=== PATIENT | female | born 1950 | race Caucasian/White ===

== ENCOUNTER → 2019-03-25 10:33 | Outpatient (CLI) | payer OTHER, SELFPAY ==
--- NOTE | ~2019-03-25 | XR_ITS ---
EXAMINATION: XR shoulder RT min 2V EXAM DATE: 03/25/2019 10:57 INDICATION: No known recent injury provided at this time. Pain of the right shoulder. TECHNIQUE: The following right shoulder projections obtained: frontal projection with internal rotati on, frontal projection with external rotation, Grashey, and axillary (4+ views). There is no prior s tudy for comparison. FINDINGS: No evidence of right shoulder rotator cuff calcific tendinosis. There is mild glenohumer al and acromioclavicular joint primary osteoarthritis. There are no acute fractures or dislocations i dentified. There is no subcutaneous gas. The soft tissue is unremarkable. There are no radiopaque foreign bodies. IMPRESSION: Mild right shoulder osteoarthritis. Reviewed, dictated and finalized at location B. 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
== END ==
PROVIDERS: PCP Nurse Practitioner Family; Visit Provider Nurse Practitioner Family
DX: M19.011 Primary osteoarthritis, right shoulder (principal)
CPT/HCPCS: 73030

== ENCOUNTER 2019-04-20 12:42 | Outpatient (CLI) | payer OTHER, SELFPAY ==
--- NOTE | ~2019-04-20 | MR_ITS ---
EXAMINATION: MR shoulder RT wo con DATE: 04/20/2019 14:05 INDICATION: Right shoulder pain. TECHNIQUE: Magnetic resonance imaging (MRI) of the right shoulder was performed without intravenous c ontrast. Sequences included axial PD-weighted FS FSE, coronal oblique PD-weighted FS FSE and T2-weigh alexa FS FSE, and sagittal oblique T2-weighted FS FSE and T1-weighted FSE. COMPARISON: Right shoulder radiographs 03/25/2019 FINDINGS: Coracoacromial arch: The acromion undersurface is flat in morphology (type I). There is a mesoacromial os acromiale. There is severe chondrosis of acromioclavicular joint. There is mild subacromial/subdeltoid bursitis. Rotator cuff: There is mild supraspinatus and infraspinatus tendinopathy. Teres minor tendon is normal. Subscapular is tendon is normal. There is no asymmetric fatty atrophy of the rotator cuff muscle bellies. Biceps tendon and glenoid labrum: Biceps tendon is in bicipital groove. There is mild intra-articular biceps tendinopathy. There is deg eneration of the glenoid labrum without well-defined tear. Fluid: There is a moderate-sized glenohumeral joint effusion. Bones/cartilage: There is cartilage surface irregularity of glenoid. There is partial-thickness cartilage loss of rahat ral head superomedially. IMPRESSION: 1. Mild rotator cuff tendinopathy. No tear. 2. Mild glenohumeral joint chondrosis. 3. Severe acromioclavicular joint chondrosis. 4. Moderate-sized glenohumeral joint effusion. 5. Mild subacromial/subdeltoid bursitis. 6. Mild intra-articular biceps tendinopathy. Reviewed, dictated and finalized at location A.
== END 2019-04-20 12:43 | disposition home or self-care (01) ==
PROVIDERS: PCP Family Medicine; Visit Provider Family Medicine
DX: G89.29 Other chronic pain (principal); M75.51 Bursitis of right shoulder; M25.411 Effusion, right shoulder
CPT/HCPCS: 73221

== ENCOUNTER → 2019-09-01 13:09 | Outpatient (CLI) | payer OTHER, SELFPAY ==
--- NOTE | ~2019-09-01 | MM_ITS ---
EXAMINATION: MM screening [facility] BI w xavi HISTORY: Screening mammogram TECHNIQUE: Craniocaudal and mediolateral oblique 3-D tomosynthesis images were obtained and synthetic 2-D images were generated. CAD analysis was submitted and interpreted. COMPARISON: Comparison to multiple prior studies sequentially, with oldest reviewed study dated 04/07. BREAST PARENCHYMAL COMPOSITION: There are scattered areas of fibroglandular density. FINDINGS: There is no evidence of suspicious mass, calcification, or architectural distortion to sugg est malignancy in either breast. There has been no suspicious interval change. IMPRESSION: 1. No mammographic evidence of malignancy. 2. Recommend routine screening mammography in one year. BI-RADS Category 1: Negative Reviewed, dictated and finalized at location A.
== END ==
PROVIDERS: Visit Provider Obstetrics & Gynecology
DX: Z12.31 Encounter for screening mammogram for malignant neoplasm of breast (principal)
CPT/HCPCS: 77063; 77067

== ENCOUNTER → 2020-08-25 12:12 | Outpatient (CLI) | payer OTHER, SELFPAY ==
--- NOTE | ~2020-08-25 | MR_ITS ---
EXAMINATION: MR lumbar spine wo con EXAM DATE: 08/25/2020 12:55 INDICATION: M54.16 - Radiculopathy, lumbar region radiculopathy. Low back pain. TECHNIQUE: Multi-sequential, multiplanar MR images of the lumbar spine were obtained without contrast . Sagittal T1, T2, T2 fat saturation images. Axial T2 weighted images. There is no prior study for comparison. FINDINGS: Chronic bilateral L5 spondylolysis with 4 mm anterolisthesis L5 on S1. There is moderate lo ss of the L4-5 and L5-S1 disc height, mild to moderate loss at L3-4. The conus medullaris terminates at the L1/2 level and has normal signal intensity and morphology. There are no prior studies for com parison. There are no suspicious marrow signal abnormalities. Paraspinal soft tissue is unremarkable. Level by level evaluation: T12-L1: There is a minimal diffuse disc bulge. Facet arthropathy: Mild. Neural foraminal stenosis: No stenosis. Central canal stenosis: No stenosis. L1-L2: There is a minimal diffuse disc bulge. Facet arthropathy: Mild to moderate. Neural foraminal stenosis: No stenosis. Central canal stenosis: No stenosis. L2-L3: There is a mild diffuse disc bulge. Facet arthropathy: Mild to moderate. Neural foraminal stenosis: No stenosis. Central canal stenosis: No stenosis. L3-L4: There is a mild diffuse disc bulge. Facet arthropathy: Mild to moderate. Neural foraminal stenosis: Mild right. Central canal stenosis: No stenosis. L4-L5: There is a mild diffuse disc bulge. Facet arthropathy: Mild to moderate. Neural foraminal stenosis: Mild to moderate left, mild right. Central canal stenosis: Mild. L5-S1: There is a mild diffuse disc bulge. Facet arthropathy: Mild to moderate. Neural foraminal stenosis: Moderate right, mild to moderate left. Central canal stenosis: No stenosis. IMPRESSION: 1. Chronic L5 spondylolysis, grade 1 anterolisthesis L5 on S1 and moderate right neural foraminal st enosis. 2. Less spondylosis other levels. Reviewed, dictated and finalized at location B. IMPRESSION: 1. Chronic L5 spondylolysis, grade 1 anterolisthesis L5 on S1 and moderate rig ht neural foraminal stenosis. 2. Less spondylosis other levels.
== END ==
PROVIDERS: Visit Provider Nurse Practitioner Family
DX: M54.16 Radiculopathy, lumbar region (principal); M47.816 Spondylosis without myelopathy or radiculopathy, lumbar region; M48.07 Spinal stenosis, lumbosacral region
CPT/HCPCS: 72148

== ENCOUNTER → 2020-09-16 16:56 | Outpatient (CLI) | payer OTHER, SELFPAY ==
--- NOTE | ~2020-09-16 | MM_ITS ---
EXAMINATION: MM screening [facility] BI w xavi HISTORY: Screening TECHNIQUE: Craniocaudal and mediolateral oblique 3-D tomosynthesis images were obtained and synthetic 2-D images were generated. CAD analysis was submitted and interpreted. COMPARISON: Comparison to multiple prior studies sequentially, with oldest reviewed study dated . BREAST PARENCHYMAL COMPOSITION: There are scattered areas of fibroglandular density. FINDINGS: There is no evidence of suspicious mass, calcification, or architectural distortion to sugg est malignancy in either breast. There has been no suspicious interval change. IMPRESSION: 1. No mammographic evidence of malignancy. 2. Recommend routine screening mammography in one year. BI-RADS Category 1: Negative Reviewed, dictated and finalized at location A.
== END ==
PROVIDERS: PCP Family Medicine; Visit Provider Obstetrics & Gynecology
DX: Z12.31 Encounter for screening mammogram for malignant neoplasm of breast (principal)
CPT/HCPCS: 77063; 77067

== ENCOUNTER 2021-10-27 14:12 | Outpatient (CLI) | payer OTHER, SELFPAY ==
[2021-10-27 18:30] LABS: Basophils Absolute Auto 0.1 K/mm3 (0.0-0.1); Basophils Percent Auto 0.7 % (0.2-1.2); Eosinophils Absolute Auto 0.3 K/mm3 (0-0.3); Hematocrit 39.6 % (37.0-47.0); Hemoglobin 12.9 g/dL (12.0-15.0); Immature Granulocyte Absolute 0.01 K/mm3 (0.00-0.031); Immature Granulocyte Percent A 0.1 % (0-0.5); Lymphocytes Absolute Auto 1.74 K/mm3 (0.9-3.2); Lymphocytes Percent Auto 25.7 % (18.3-44.2); Mean Corpuscular HGB Conc 32.6 g/dl (32-36); Mean Corpuscular Hemoglobin 29.1 pg (26-34); Mean Corpuscular Volume 89.2 fl (80-100); Mean Platelet Volume 10.6 fl (7.4-10.4); Monocytes Absolute Auto 0.7 K/mm3 (0.1-0.6); Monocytes Percent Auto 10.9 % (2.6-8.5); Neutrophils Percent Auto 58.6 % (45.5-73.1); Platelet Count Result 296 k/mm3 (150-375); Red Blood Count 4.44 M/mm3 (4.2-5.4); Red Cell Distribution Width 13.3 % (11.5-14.5); White Blood Count 6.8 K/mm3 (4.5-10.0)
[2021-10-27 20:06] LABS: Potassium 3.5 mmol/L (3.4-5.0)
[2021-10-27 20:08] LABS: Alanine Aminotransferase 33 U/L (6-35); Alkaline Phosphatase 60 U/L (38-126); Anion Gap 11 mmol/L (8-16); Aspartate Amino Transferase 44 U/L (14-36); Bilirubin,Total 0.3 mg/dL (0.2-1.3); Blood Urea Nitrogen 13 mg/dL (7-17); Calcium 9.3 mg/dL (8.4-10.2); Carbon Dioxide 29 mmol/L (22-30); Chloride 98 mmol/L (98-107); Estimated Glomerular Filt Rate > 60; Glucose 106 mg/dL (65-110); Sodium 138 mmol/L (137-145)
== END 2021-10-27 14:13 | disposition home or self-care (01) ==
PROVIDERS: PCP Family Medicine; Visit Provider Nurse Practitioner Family
DX: R53.83 Other fatigue (principal); E03.9 Hypothyroidism, unspecified
CPT/HCPCS: 36415; 80053; 82607; 84443; 85025

== ENCOUNTER 2021-11-10 08:12 | Outpatient (CLI) | payer OTHER, SELFPAY | END 2021-11-10 08:13 | disposition home or self-care (01) | PROVIDERS: PCP Family Medicine; Visit Provider Nurse Practitioner Family | DX: R74.01 Elevation of levels of liver transaminase levels (principal) | CPT/HCPCS: 36415 ==

== ENCOUNTER 2021-11-13 09:59 | Outpatient (CLI) | payer OTHER, SELFPAY ==
--- NOTE | 2021-11-13 10:07 | EST_ITS ---
Patient Info Name: Shwetha Boyce Age: 71 years : 1950 Gender: Female Ht: 63 in Wt: 181 lbs BSA: 1.94 m2 HR: 65 bpm BP: 151 / 70 mmHg Heart Rhythm: Sinus Rhythm Exam Date: 11/13/2021 10:19 AM Exam Location: [facility] [place] Stress Patient Status: Outpatient Admit Date: 11/13/2021 Staff Ordering Physician: Tita Aldrich NP Attending Provider: Tita Aldrich NP Exercise Technologist: Louann Melgar CT Exercise Physician: Isak Das DO Exam Type: CA stress test treadmill Study Info Indications R06.00 - Dyspnea, unspecified A treadmill exercise stress test was performed. Summary 1. 1. Equivocal Rodger exercise stress test for ischemic ST changes by ECG criteria with upsloping ST depressions. 2. 2. Good functional capacity, achieving 7 METs of workload. 3. 3. Baseline hypertension. 4. 4. Appropriate HR response to exercise. 5. 5. Appropriate HR recovery at 1 minute post exercise. 6. 6. No imaging with stress testing. 7. 7. Patient informed of the above results. Protocol: [place]ger Stress ECG Details Stage: REST Duration (min): 1 min : 9 sec Speed (mph): 0.0 Grade (%): 0 HR (bpm): 65 SBP (mmHg): 151 DBP (mmHg): 70 METS: --- Stage: REST Duration (min): 3 min : 23 sec Speed (mph): 0.0 Grade (%): 0 HR (bpm): 67 SBP (mmHg): 151 DBP (mmHg): 70 METS: --- Stage: STAGE 1 Duration (min): 1 min : 0 sec Speed (mph): 1.7 Grade (%): 10 HR (bpm): 94 SBP (mmHg): 151 DBP (mmHg): 70 METS: --- Stage: STAGE 1 Duration (min): 2 min : 0 sec Speed (mph): 1.7 Grade (%): 10 HR (bpm): 109 SBP (mmHg): 151 DBP (mmHg): 70 METS: --- Stage: STAGE 1 Duration (min): 3 min : 0 sec Speed (mph): 1.7 Grade (%): 10 HR (bpm): 115 SBP (mmHg): 174 DBP (mmHg): 75 METS: --- Stage: STAGE 2 Duration (min): 1 min : 0 sec Speed (mph): 2.5 Grade (%): 12 HR (bpm): 127 SBP (mmHg): 174 DBP (mmHg): 75 METS: --- Stage: STAGE 2 Duration (min): 2 min : 0 sec Speed (mph): 2.5 Grade (%): 12 HR (bpm): 136 SBP (mmHg): 180 DBP (mmHg): 78 METS: --- Stage: STAGE 2 Duration (min): 2 min : 10 sec Speed (mph): 2.5 Grade (%): 12 HR (bpm): 136 SBP (mmHg): 180 DBP (mmHg): 78 METS: --- Stage: RECOVERY Duration (min): 0 min : 49 sec Speed (mph): 0.0 Grade (%): 0 HR (bpm): 113 SBP (mmHg): 180 DBP (mmHg): 78 METS: --- Stage: RECOVERY Duration (min): 1 min : 49 sec Speed (mph): 0.0 Grade (%): 0 HR (bpm): 86 SBP (mmHg): 180 DBP (mmHg): 78 METS: --- Stage: RECOVERY Duration (min): 2 min : 49 sec Speed (mph): 0.0 Grade (%): 0 HR (bpm): 78 SBP (mmHg): 208 DBP (mmHg): 76 METS: --- Stage: RECOVERY Duration (min): 3 min : 49 sec Speed (mph): 0.0 Grade (%): 0 HR (bpm): 75 SBP (mmHg): 165 DBP
== END 2021-11-13 10:00 | disposition home or self-care (01) ==
PROVIDERS: PCP Family Medicine; Visit Provider Nurse Practitioner Family
DX: R06.09 Other forms of dyspnea (principal)
CPT/HCPCS: 93017

== ENCOUNTER 2022-01-05 00:12 | Emergency (ER) | payer OTHER, SELFPAY ==
--- NOTE | ~2022-01-05 | CT_ITS ---
EXAMINATION: CT abdomen pelvis w con DATE: 01/05/2022 01:45 INDICATION: Right upper quadrant abdominal pain TECHNIQUE: Computed tomography (CT) of the abdomen and pelvis was performed with 100 CC Omnipaque 350 intravenous contrast. Automated exposure control and iterative reconstruction technique were employe d. Exam dose: 485.10 mGy-cm total exam DLP. COMPARISON: None. FINDINGS: There is a focal fat-containing foramen of Bochdalek hernia in the medial left lower chest. The lung bases are clear of infiltrate or consolidation. Normal heart size. Coronary artery calcification. No pericardial or pleural effusion. Small sliding hiatal hernia Approximately 12 mm and 8 mm hepatic dome cysts. There is pericholecystic fluid or gallbladder wall edema, raising suspicion of acute cholecystitis. N o bile duct or pancreatic duct dilatation. No pancreatic mass lesion or calcification. Normal splenic size. Normal right adrenal gland. 2 x 1.3 cm left adrenal soft tissue mass. Approximately 3.4 cm right renal cyst, 6.5 mm left renal cyst. Posterior upper pole left renal scarri ng. No urinary tract calculus or hydroureteronephrosis. The urinary bladder is relatively evacuated but u nremarkable otherwise. Status post hysterectomy. Atherosclerotic calcification but normal caliber of the abdominal aorta. Prominent calcification at t he origins of the superior mesenteric and right greater than left renal arteries. No intraperitoneal or retroperitoneal or pelvic mass lesion or adenopathy or ascites is detected. Normal appendix. No bowel obstruction, bowel wall thickening, pneumatosis or intraperitoneal free air is detected. Bilateral L5 pars interarticularis defects with associated grade 1 anterolisthesis at L5-S1. Moderately severe degenerative disc disease at L4-5 and L5-S1, moderate degenerative disease at L3-4 with minimal retrolisthesis. No suspicious osteolytic or osteoblastic lesions are noted. IMPRESSION: Findings suspicious for acute cholecystitis Hepatic cysts Renal cysts 2 x 1.3 cm left adrenal mass; consider CT or MR evaluation. In the absence of any known cancer, this is statistically most likely an adrenal adenoma. Bilateral L5 pars intra-articular is defects with associated grade 1 anterolisthesis at L5-S1 Reviewed, dictated and finalized at Location A. Reviewed, dictated and finalized at location A. 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 In the absence of a ny known cancer, this is statistically most likely an adrenal adenoma. Bilateral L5 pars intra-articular is defects with associated grade 1 anterolist hesis at L5-S1
[2022-01-05 00:19] VITALS: BP 146/62; PULSE 80; RESP 18; TEMP 36.9; O2SAT 98
--- NOTE | 2022-01-05 01:12 | ED.GENADULT ---
HPI - General Adult General Chief complaint: Abdominal Pain Stated complaint: abd pain Time Seen by Provider: 01/05/22 00:52 Source: RN notes reviewed History of Present Illness HPI narrative: Patient presents emergency room from home for abdominal pain. Patient states pain began approximately 4:30 PM today. The pain is located in the right upper quadrant of the abdomen described as sharp and stabbing in nature and associated with nausea vomiting. Patient states the pain radiates around to her right back. She denies any fevers or chills denies any diarrhea and states the pain is improved but is still present states she not take anything for the pain Related Data Home Medications Medication Instructions Recorded Confirmed aspirin 81 mg tablet,delayed 81 mg PO DAILY 02/10/19 12/11/21 release (Ecotrin Low Strength) calcium carbonate 600 mg calcium 600 mg PO DAILY 02/10/19 12/11/21 (1,500 mg) tablet (Calcium) multivitamin 1 tablet PO DAILY 02/10/19 12/11/21 omeprazole 20 mg capsule,delayed 20 mg PO DAILY PRN 10/27/21 12/11/21 release Allergies Allergy/AdvReac Type Severity Reaction Status Date / Time tramadol Allergy Unknown Headache Verified 01/05/22 01:05 Review of Systems Review of Systems: Gen.: Denies fevers or chills ENT: Denies congestion Respiratory: Denies shortness of breath or cough CV: Denies chest pain or palpitations GI: see HPI denies burning, urgency, frequency or hematuria Musculoskeletal: Denies back pain or muscle pain Neuro: Denies numbness, tingling, weakness or focal weakness Skin: Denies rash Except as documented, all other systems reviewed and negative [facility] Past Medical History Medical History Anxiety Cervical pain (neck) GERD without esophagitis Hx of thyroglossal duct cyst 1970, 1971, 1971 Hyperlipidemia Hypertension Hypothyroid (~2011) Lumbar back pain with radiculopathy affecting left lower extremity Osteoarthritis Osteoarthritis of right shoulder Osteopenia Post-menopausal Recurrent herpes labialis Sleep apnea CPAP Spondylolisthesis of lumbosacral region Upper extremity pain, lateral Surgical History Surgical History H/O: hysterectomy (~1991) History of left knee replacement (~2016) Hx of removal of thyroglossal duct cyst 1970s Family History Family History Grandparent Hypertension Family history of lung cancer Family history of coronary artery disease Diabetes mellitus Family history of malignant neoplasm of breast Family history of heart disease in male family member before age 55 Father Cerebrovascular accident Family history of coronary artery disease Family history of heart disease in male family member before age 55 Mother Family history of malignant neoplasm of cervix Sibling Hypertension Family history of Alzheimer's disease Other Family history of cardiovascular disease Social History Social History Social History: Lives with . Has 2 children Smoking status: Never smoker Alcohol intake: never Substance use: never Substance use type: does not use Additional living arrangements comments: Gender identity (if verbalized by the patient): Female Sexual Orientation (if Verbalized by the Patient): Straight or Heterosexual Agree to blood products: Yes Exam Narrative: APPEARANCE: No acute distress, nontoxic, resting in bed HEENT: Normocephalic, atraumatic, OMM RESPIRATORY: No respiratory distress, clear to auscultation bilaterally with no rhonchi wheezing or rales CARDIOVASCULAR: RRR s murmur ABDOMINAL: Soft nondistended tender palpation right upper quadrant no tenderness in left upper quadrant, left lower quadrant and right lower quadrant no rebound or guarding MUSCULOSKELETAl:
[2022-01-05 01:26] LABS: Alanine Aminotransferase 24 U/L (6-35); Alkaline Phosphatase 66 U/L (38-126); Anion Gap 9 mmol/L (8-16); Aspartate Amino Transferase 28 U/L (14-36); Bilirubin,Total 0.3 mg/dL (0.2-1.3); Blood Urea Nitrogen 16 mg/dL (7-17); Calcium 9.1 mg/dL (8.4-10.2); Carbon Dioxide 26 mmol/L (22-30); Chloride 103 mmol/L (98-107); Estimated CRCL calculation 55 ml/min; Estimated Glomerular Filt Rate > 60; Glucose 136 mg/dL (65-110); Lipase 82 U/L (23-300); Potassium 3.4 mmol/L (3.4-5.0); Sodium 138 mmol/L (137-145)
[2022-01-05 01:30] LABS: Basophils Absolute Auto 0.1 K/mm3 (0.0-0.1); Basophils Percent Auto 0.5 % (0.2-1.2); Eosinophils Absolute Auto 0.1 K/mm3 (0-0.3); Eosinophils Percent Auto 1.1 % (0-4.4); Hemoglobin 12.7 g/dL (12.0-15.0); Immature Granulocyte Absolute 0.16 K/mm3 (0.00-0.031); Immature Granulocyte Percent A 1.5 % (0-0.5); Lymphocytes Absolute Auto 1.47 K/mm3 (0.9-3.2); Lymphocytes Percent Auto 13.4 % (18.3-44.2); Mean Corpuscular HGB Conc 32.6 g/dl (32-36); Mean Corpuscular Hemoglobin 29.8 pg (26-34); Mean Corpuscular Volume 91.5 fl (80-100); Mean Platelet Volume 10.5 fl (7.4-10.4); Monocytes Absolute Auto 0.7 K/mm3 (0.1-0.6); Monocytes Percent Auto 6.7 % (2.6-8.5); Neutrophils Absolute Auto 8.4 K/mm3 (1.3-6.7); Neutrophils Percent Auto 76.8 % (45.5-73.1); Platelet Count Result 304 k/mm3 (150-375); Red Blood Count 4.26 M/mm3 (4.2-5.4); Red Cell Distribution Width 13.2 % (11.5-14.5)
[2022-01-05 01:31] LABS: Appearance Urine Cloudy (Clear); Bilirubin Urine Negative (Negative); Blood Urine Negative (Negative); Color Urine Yellow (Yellow); Glucose Urine UA Negative (Negative); Ketones Urine Negative (Negative); Leukocyte Esterase Ur Negative LEU/UL (Negative); Nitrate Urine Negative (Negative); Protein Urine Negative (Negative); Urobilinogen Urine 0.2 mg/dL (<2.0)
[2022-01-05 01:35] LABS: Mucus Urine Rare /lpf; RBC Urine 21-50 /hpf (0-2); Squamous Epithelial Cell Urine Rare /hpf (Few); WBC Urine 16-20 /hpf
[2022-01-05 01:40] LABS: Add Urine Microscopic? NO
[2022-01-05] MEDS: SODIUM CHLORIDE 0.9% IV 1,000 ML 999 ML IV CONT (01:58)
[2022-01-05 02:28] VITALS: TEMP 36.9
[2022-01-05] MEDS: metroNIDAZOLE 250 MG TABLET 500 MG PO (03:22)
[2022-01-05] MEDS: CIPROFLOXACIN 500 MG TAB PO (03:22)
[2022-01-05 03:25] VITALS: BP 122/77; PULSE 88; RESP 16; O2SAT 100
== END 2022-01-05 03:43 | disposition home or self-care (01) ==
PROVIDERS: Emergency Provider Emergency Medicine; PCP Nurse Practitioner Family
DX: K81.0 Acute cholecystitis (principal); E78.5 Hyperlipidemia, unspecified; I10 Essential (primary) hypertension; E03.9 Hypothyroidism, unspecified; K21.9 Gastro-esophageal reflux disease without esophagitis; M19.011 Primary osteoarthritis, right shoulder; M85.80 Other specified disorders of bone density and structure, unspecified site; G47.30 Sleep apnea, unspecified; Z90.710 Acquired absence of both cervix and uterus; Z96.652 Presence of left artificial knee joint; Z79.82 Long term (current) use of aspirin
CPT/HCPCS: 36415; 74177; 80053; 81003; 83690; 85025; 87086; 87088; 96361; 96374; 99284; A9270; J0131; J7030; Q9967

== ENCOUNTER 2022-01-17 10:28 | Outpatient (CLI) | payer OTHER, SELFPAY ==
[2022-01-17 11:20] LABS: Amylase 48 U/L (30-110)
== END 2022-01-17 10:29 | disposition home or self-care (01) ==
PROVIDERS: PCP Nurse Practitioner Family; Visit Provider Surgery
DX: K80.00 Calculus of gallbladder with acute cholecystitis without obstruction (principal)
CPT/HCPCS: 36415; 82150; 86850; 86900; 86901

== ENCOUNTER 2022-01-22 00:11 | Day surgery (SDC) | payer OTHER, SELFPAY ==
[2022-01-12 14:14] VITALS: BMI 31.0
--- NOTE | 2022-01-12 14:25 | PC.NURSE ---
PRE-OP INSTRUCTIONS, PLEASE READ CAREFULLY Report to the Outpatient Waiting Room, entrance under the green pavilion located off [facility], at time _0600_ on date -01/22/22_. Planned Procedure Time: _0730_. Time changes happen often and if your time is changed the preop area will call you the afternoon before. - You and your visitor will be asked to self-screen and do not enter if you have any COVID symptoms. - Only one visitor is requested with a max of two and NO children visitors are allowed at this time. - The patient visitor may be requested to leave or wait in car when not with patient due to distancing restrictions. - A mask is optional within the hospital. Patients may have clear liquids (water, carbonated beverages, clear teas, apple juice) until 3 hours prior to surgery (0430 AM) with a maximum of 20 ounces. - No food from midnight until time of surgery Take the following medications with a SIP of water the morning of surgery: _CARVEDILOL, LEVOTHYROXINE, ALPRAZOLAM IF NEEDED _ Medications to discontinue per ANESTHESIA - _MULTIVITAMIN 3 DAYS PRIOR TO SURGERY, Date to take last dose 01/18/22_ Please no make-up, nail kyrgyz, hairspray, perfume, deodorant, or body powder the day of surgery. No jewelry (including any body piercings) or valuables the day of surgery, leave them at home. Please take a shower or bath the night before, or the morning of, surgery with an antibacterial soap. Wear comfortable, loose fitting clothing. - Jewelry must be removed prior to entering the operating room. Rings and piercings that are not removed may be cut off. - The hospital will not accept responsibility for valuables. - Please leave all valuables, including medications, at home the day of surgery. If you are going home after surgery, a licensed utility driver must drive you home. - NO public transportation without another adult if you receive anesthesia. - We recommend that an adult stay with you for 24 hours following discharge. - We also recommend that you do not drive, make important decision, drink alcoholic beverages, or take any drugs that were not prescribed by your health care provider for at least 24 hours after your discharge time. Follow any additional instructions given to you from your surgeon. HIBICLENS SHOWER AM OF SURGERY If you or anyone in your household have experienced Covid symptoms in the past week, please notify your surgeon or the nurse liaison at the phone number below for possible testing. Telephone instructions given to _PATIENT_and asked if any additional questions and then verbalized understanding. Patient advised to call surgeon office or pre surgery nurse liaison [phone] if any additional questions.
--- NOTE | 2022-01-19 14:47 | WPDANESEPPF ---
Anes - Initial Pre Proc Eval Procedure: Operation Date: 01/22/22 07:30 Proposed Procedures p Laparoscopic Cholecystectomy - Joyce Wolfe MD Date/Time: 01/19/22 14:47 Surgeon: Joyce Wolfe MD Pre Op Diagnosis: acute cholecystitis with stones Patient Data Age: 71 Gender: F Height: 1.6 m Weight: 79.54 kg Allergies Allergy/AdvReac Type Severity Reaction Status Date / Time tramadol Allergy Unknown Headache Verified 01/12/22 14:10 Home Medications Medication Instructions Recorded Confirmed Type aspirin 81 mg tablet,delayed 81 mg PO DAILY 02/10/19 01/12/22 History release (Ecotrin Low Strength) calcium carbonate 600 mg calcium 600 mg PO DAILY 02/10/19 01/12/22 History (1,500 mg) tablet (Calcium) multivitamin 1 tablet PO DAILY 02/10/19 01/12/22 History estradiol 0.01% (0.1 mg/gram) 1 g vaginal 2XW #42.5 grams 03/27/21 01/12/22 Rx vaginal cream (Estrace) simvastatin 20 mg tablet 20 mg PO DAILY #90 tabs 04/10/21 01/12/22 Rx levothyroxine 25 mcg tablet 37.5 mcg PO DAILY #135 tabs 06/20/21 01/12/22 Rx alprazolam 0.25 mg tablet 0.25 mg PO DAILY PRN anxiety #30 11/10/21 01/12/22 Rx tabs carvedilol 12.5 mg tablet See Rx Instructions .Route 12/01/21 01/12/22 Rx .COMPLEX #180 tabs lisinopril 20 See Rx Instructions .Route 12/01/21 01/12/22 Rx mg-hydrochlorothiazide 25 mg tablet .COMPLEX #90 tabs ondansetron 4 mg disintegrating 4 mg PO Q8H PRN nausea and 01/12/22 01/12/22 Rx tablet vomiting #20 tabs valacyclovir 1 gram tablet 1,000 mg PO TID PRN Cold Sores 01/12/22 01/12/22 History Patient hx anesthesia problems: none Family hx anesthesia problems: none Results Review: All pre-operative results and documents have been reviewed as part of the pre-operative evaluation. [facility] Past Medical History Medical History Anxiety Cervical pain (neck) GERD without esophagitis Hx of thyroglossal duct cyst 1970, 1970, 1972 Hyperlipidemia Hypertension Hypothyroid (~2011) Lumbar back pain with radiculopathy affecting left lower extremity Osteoarthritis Osteoarthritis of right shoulder Osteopenia Post-menopausal Recurrent herpes labialis Sleep apnea CPAP Spondylolisthesis of lumbosacral region Upper extremity pain, lateral Surgical History Surgical History H/O: hysterectomy (~1991) History of left knee replacement (~2015) Hx of removal of thyroglossal duct cyst Family History Family History Grandparent Hypertension Family history of lung cancer Family history of coronary artery disease Diabetes mellitus Family history of malignant neoplasm of breast Family history of heart disease in male family member before age 55 Father Cerebrovascular accident Family history of coronary artery disease Family history of heart disease in male family member before age 55 Mother Family history of malignant neoplasm of cervix Sibling Hypertension Family history of Alzheimer's disease Other Family history of cardiovascular disease Social History Social History Social History: Lives with . Has 2 children Smoking status: Never smoker Second hand tobacco smoke exposure: No Alcohol intake: never Substance use: never Substance use type: does not use Lack of Transportation: No Lack of Food: Never True Current Housing: I Have Housing Concerned About Future Housing: No Difficulty Paying Gas/Electric Bills: No Difficulty Paying for Meds: No Currently Unemployed: No Education: High School Diploma/GED Difficulty w/ Childcare or Family Care: No Living arrangements: with family Additional living arrangements comments: Gender identity (if verbalized by the patient): Female Sexual Orientation (if Verbalized by t
[2022-01-22] VITALS (9 sets, daily range): BP systolic 102–151; BP diastolic 51–76; PULSE 48–68; RESP 7–16; TEMP 36.2–36.6; O2SAT 94–100
[2022-01-22] MEDS: ACETAMINOPHEN 500 MG TABLET 1000 MG PO (06:37)
[2022-01-22] MEDS: KETOROLAC 15 MG/ML VIAL (*BKC) IV PUSH (06:45)
[2022-01-22] MEDS: LACTATED RINGERS 1,000 ML 30 ML IV CONT ×2 (06:48→08:17)
--- NOTE | 2022-01-22 07:18 | WPDHPUPDATE1 ---
History and Physical Update Update Date/Time: 01/22/22 07:18 History and Physical has been reviewed, including an updated exam of the patient. There are NO changes in the patient's condition. Risks, benefits, and alternatives have been discussed and questions answered. Patient agrees to proceed with procedure.
[2022-01-22] MEDS: ceFAZolin 2 GM/D5W 50 ML 2 GM/50 ML BAG IVPB (07:26)
[2022-01-22] MEDS: BUPIVACAINE/EPINEPHRINE 0.5% 10 ML VIAL 30 ML INFILTRATE (07:26)
--- NOTE | 2022-01-22 08:10 | P.OP_ITS ---
Procedure Note - Detailed Date of Procedure 01/22/22 Pre-op Diagnosis acute cholecystitis with stones Post-op Diagnosis Same Procedure Performed Laparoscopic cholecystectomy Surgeon Joyce Wolfe MD Anesthesia General Indications 71-year-old female presented to the office complaining of postprandial right up per quadrant abdominal pain associated with nausea and vomiting. Workup including imaging significant for cholecystitis, cholelithiasis. Findings Cholecystitis Description of Procedure The patient was taken to the operating room placed in the supine position. After adequate induction of general anesthesia, the patient was prepped and draped in normal sterile fashion. A time-out was then performed to verify the patient's identity as well as the procedure being performed. I then made a 5 mm incision in the infraumbilical region. Through this, a Veress needle was placed into the peritoneal cavity and CO2 gas was then insufflated. After adequate pneumoperitoneum was achieved, the Veress needle was removed and a 5 mm optiview trocar was placed through this incision under direct visualization. I then placed the laparoscope through this trocar site and under direct visualization placed a further 12 mm subxiphoid port as well as 2 additional 5 mm ports in the right upper abdomen. The gallbladder was then identified and was noted to be moderately inflamed and distended. I was able to place a grasper at the dome of the gallbladder and this was retracted anterior and cephalad up over the liver. A 2nd retractor was then placed at the infundibulum and retracted laterally, this allowed visualization of the triangle of Calot. I then was able to visualize the cystic duct in its entirety from its proximal insertion into the gallbladder, to its distal junction with the common hepatic/common bile duct junction. At this point, I carefully skeletonized the proximal cystic duct with the [place] dissector. I then clipped and transected the proximal cystic duct. Next I visualized the cystic artery. Again the artery was skeletonized, clipped, and transected. I then used the Bovie cautery to take down the peritoneal attachments of the gallbladder off the liver bed. Once the gallbladder specimen was completely detached, an endo-pouch was placed through the 12 mm port site. I then placed the gallbladder specimen into the Endo pouch and removed the endo-pouch from the 12 mm port site. The specimen will now be sent to pathology for further review. I then copiously irrigated the right upper quadrant. Hemostasis was noted in the liver bed, the clips were noted to be in good position on both the cystic duct stump and the cystic artery stump. No other pathology was noted in the right upper quadrant. I then moved the laparoscope to the subxiphoid port. No iatrogenic injury or other pathology was noted in the lower abdomen. I then closed the 12 mm trocar site under direct visualization using the Renny cone and 0 Vicryl suture. At this point, the abdomen was desufflated and all ports removed. All port sites were then closed with 4.O Monocryl subcuticular sutures. Dermabond was placed on each incision. The patient tolerated the procedure well, was extubated in the operating room postoperative and will be transferred to the recovery room in stable condition Estimated Blood Loss 5 Drains No Packing No Pathology Yes Complications No immediate complications Condition Stable Disposition PACU [facility] Billing Surgery - Charge Forward: Surgery Billing
[2022-01-22] MEDS: ONDANSETRON INJ 4 MG/2 ML VIAL IV PUSH (10:15)
== END 2022-01-22 10:35 | disposition home or self-care (01) ==
PROVIDERS: PCP Nurse Practitioner Family; Visit Provider Surgery
PROC: 0FT44ZZ Resection of Gallbladder, Percutaneous Endoscopic Approach (ICD-10-PCS; CPT 47562; principal; 2022-01-22 07:30)
DX: K80.10 Calculus of gallbladder with chronic cholecystitis without obstruction (principal); I10 Essential (primary) hypertension; E78.5 Hyperlipidemia, unspecified; E03.9 Hypothyroidism, unspecified; K21.9 Gastro-esophageal reflux disease without esophagitis; F41.9 Anxiety disorder, unspecified; G47.30 Sleep apnea, unspecified; B00.1 Herpesviral vesicular dermatitis; E66.9 Obesity, unspecified; Z68.31 Body mass index [BMI] 31.0-31.9, adult
CPT/HCPCS: 47562; 88304; A9270; J0690; J1100; J1885; J2405; J2704; J3010; J7030; J7120

== ENCOUNTER → 2022-02-14 11:29 | Outpatient (CLI) | payer OTHER, SELFPAY ==
--- NOTE | ~2022-02-14 | MM_ITS ---
EXAMINATION: MM screening [facility] BI w xavi HISTORY: Screening mammogram TECHNIQUE: Craniocaudal and mediolateral oblique 3-D tomosynthesis images were obtained and synthetic 2-D images were generated. CAD analysis was submitted and interpreted. COMPARISON: 09/16/2020, 09/01/2019, 05/29/2018 BREAST PARENCHYMAL COMPOSITION: There are scattered areas of fibroglandular density with extremely de nse tissue in the subareolar aspects of the breast which limits sensitivity of mammography in these a reas. FINDINGS: No suspicious mass, calcification, or architectural distortion are identified in either tres ast to suggest malignancy. There has been no suspicious interval change. IMPRESSION: 1. No mammographic evidence of malignancy. 2. Recommend routine screening mammography in one year. BI-RADS Category 1: Negative Reviewed, dictated and finalized at location A. [employer]
== END ==
PROVIDERS: PCP Family Medicine; Visit Provider Obstetrics & Gynecology
DX: Z12.31 Encounter for screening mammogram for malignant neoplasm of breast (principal)
CPT/HCPCS: 77063; 77067

== ENCOUNTER 2022-04-13 09:50 | Outpatient (CLI) | payer OTHER, SELFPAY | END 2022-04-13 09:51 | disposition home or self-care (01) | LOC: ANHAUDIO 09:51 | PROVIDERS: PCP Family Medicine; Visit Provider Otolaryngology | DX: H90.3 Sensorineural hearing loss, bilateral (principal); H93.19 Tinnitus, unspecified ear | CPT/HCPCS: 92557; 92567 ==

== ENCOUNTER 2022-08-29 22:00 | Emergency (ER) | payer OTHER, SELFPAY ==
--- NOTE | ~2022-08-29 | XR_ITS ---
Portable chest x-ray Comparison: 06/02/2013 Clinical History: Chest pain, dyspnea Findings: Lungs are clear, without focal consolidation or pleural effusion. Cardiomediastinal silho uette is stable. Bones and soft tissues are unremarkable. Impression: Normal chest. Reviewed, dictated and finalized at location . Impression: Normal chest.
[2022-08-29 21:58] VITALS: BP 172/63; PULSE 67; RESP 18; TEMP 36.4; O2SAT 98
--- NOTE | 2022-08-29 22:06 | ECG_ITS ---
Measurements Intervals [place] Rate: 65 P: 29 TN: 161 QRS: -9 QRSD: 86 T: 1 QT: 389 QTc: 407 Interpretive Statements SINUS RHYTHM INCOMPLETE RIGHT BUNDLE BRANCH BLOCK BASELINE ARTIFACT- I, II, III, AVR, AVL, AVF BORDERLINE ECG NO PREVIOUS ECG AVAILABLE FOR COMPARISON Electronically Signed On 08-30-2022 6:49:33 CDT by Isak Das D.O.
[2022-08-29 23:17] VITALS: BP 164/71; PULSE 61; RESP 17; TEMP 36.4; O2SAT 98
--- NOTE | 2022-08-29 23:47 | ED.GENADULT ---
HPI - General Adult General Chief complaint: Recheck/Abnormal Lab/Rx Stated complaint: HIGH BLOOD PRESSURE ISSUES Time Seen by Provider: 08/29/22 22:53 History of Present Illness HPI narrative: Patient 71-year-old female presents emerged from with chief complaint of hypertension and discomfort in the chest. Patient reports that she has prior history of hypertension and reports that her blood pressure this evening was elevated the patient also reports throughout the day she had a uncomfortable feeling in her chest and felt a little short of breath. Patient reports symptoms not improved by anything and reports are not worsened by anything. Patient reports that her blood pressure was in the 200s at home Related Data Home Medications Medication Instructions Recorded Confirmed aspirin 81 mg tablet,delayed 81 mg PO DAILY 02/10/19 07/03/22 release (Ecotrin Low Strength) calcium carbonate 600 mg calcium 600 mg PO DAILY 02/10/19 07/03/22 (1,500 mg) tablet (Calcium) multivitamin 1 tablet PO DAILY 02/10/19 07/03/22 carvedilol 12.5 mg tablet 12.5 mg PO BID 04/18/22 07/03/22 lisinopril 20 1 tablet PO DAILY 04/18/22 07/03/22 mg-hydrochlorothiazide 25 mg tablet simvastatin 20 mg tablet 20 mg PO QHS 04/18/22 07/03/22 valacyclovir 1 gram tablet 2,000 mg PO BID PRN Cold Sores 04/18/22 07/03/22 levothyroxine 50 mcg tablet 37.5 mcg PO DAILY 07/02/22 07/03/22 vitamin B complex (B 1 tablet PO DAILY 07/03/22 07/03/22 Complex-Vitamin B12 tablet) Allergies Allergy/AdvReac Type Severity Reaction Status Date / Time tramadol AdvReac Unknown Headache Verified 07/03/22 10:59 Review of Systems Review of Systems: A 10 system review of systems was completed on the patient and is negative except for what is stated in the HPI. Nursing and ancillary documentation was reviewed. [facility] Past Medical History Medical History Acute cholecystitis (~12/2021) Adenoma of left adrenal gland (~12/2021) Anxiety CAD in [place] artery GERD without esophagitis Hx of thyroglossal duct cyst 1969, 1970, 1972 Hyperlipidemia Hypertension Hypothyroid (~2011) Liver cyst Osteoarthritis Osteopenia Post-menopausal Recurrent herpes labialis Renal cysts, acquired, bilateral Sleep apnea CPAP Spondylolisthesis of lumbosacral region Surgical History Surgical History H/O: hysterectomy (~1991) History of left knee replacement (~2015) Hx laparoscopic cholecystectomy (~01/2022) 01/22/22 Hx of removal of thyroglossal duct cyst 1970s Family History Family History Grandparent Hypertension Family history of lung cancer Family history of coronary artery disease Diabetes mellitus Family history of malignant neoplasm of breast Family history of heart disease in male family member before age 55 Father Cerebrovascular accident Family history of coronary artery disease Family history of heart disease in male family member before age 55 Mother Family history of malignant neoplasm of cervix Sibling Hypertension Family history of Alzheimer's disease Other Family history of cardiovascular disease Social History Social History Social History: Lives with . Has 2 children Smoking status: Never smoker Second hand tobacco smoke exposure: No Alcohol intake: never Substance use: never Substance use type: does not use Lack of Transportation: No Lack of Food: Never True Current Housing: I Have Housing Concerned About Future Housing: No Difficulty Paying Gas/Electric Bills: No Difficulty Paying for Meds: No Currently Unemployed: No Education: High School Diploma/GED Difficulty w/ Childcare or Family Care: No Living arrangements: with family Additional living arrangemen
[2022-08-29 23:56] LABS: Basophils Absolute Auto 0.1 K/mm3 (0.0-0.1); Basophils Percent Auto 0.6 % (0.2-1.2); Eosinophils Absolute Auto 0.5 K/mm3 (0-0.3); Eosinophils Percent Auto 4.8 % (0-4.4); Hematocrit 37.6 % (37.0-47.0); Hemoglobin 12.3 g/dL (12.0-15.0); Immature Granulocyte Absolute 0.02 K/mm3 (0.00-0.031); Immature Granulocyte Percent A 0.2 % (0-0.5); Lymphocytes Absolute Auto 2.84 K/mm3 (0.9-3.2); Lymphocytes Percent Auto 29.4 % (18.3-44.2); Mean Corpuscular HGB Conc 32.7 g/dl (32-36); Mean Corpuscular Hemoglobin 29.9 pg (26-34); Mean Corpuscular Volume 91.3 fl (80-100); Mean Platelet Volume 11.2 fl (7.4-10.4); Monocytes Absolute Auto 0.9 K/mm3 (0.1-0.6); Monocytes Percent Auto 9.3 % (2.6-8.5); Neutrophils Absolute Auto 5.4 K/mm3 (1.3-6.7); Neutrophils Percent Auto 55.7 % (45.5-73.1); Platelet Count Result 274 k/mm3 (150-375); Red Blood Count 4.12 M/mm3 (4.2-5.4); Red Cell Distribution Width 14.1 % (11.5-14.5); White Blood Count 9.7 K/mm3 (4.5-10.0)
[2022-08-30 00:02] LABS: Appearance Urine Cloudy (Clear); Bacteria Urine None Seen /hpf; Bilirubin Urine Negative (Negative); Blood Urine Negative (Negative); Color Urine Yellow (Yellow); Glucose Urine UA Negative (Negative); Ketones Urine Negative (Negative); Leukocyte Esterase Ur 1+ LEU/UL (Negative); Need Manual Microscopic Reviewed; Nitrate Urine Negative (Negative); Non Pathogenic Casts 0-2; Protein Urine Negative (Negative); RBC Urine 51-100 /hpf (0-2); Specific Grav Ur 1.014 (1.001-1.035); Squamous Epithelial Cell Urine Occasional /hpf (Few); Urobilinogen Urine 0.2 mg/dL (<2.0); WBC Urine 0-5 /hpf
[2022-08-30 00:06] LABS: Lactic Acid Reflex 0.7 mmol/L (0.7-2.0)
[2022-08-30 00:07] LABS: Alanine Aminotransferase 22 U/L (6-35); Albumin Level 3.8 g/dL (3.5-5.1); Alkaline Phosphatase 51 U/L (38-126); Anion Gap 2 mmol/L (8-16); Aspartate Amino Transferase 25 U/L (14-36); Bilirubin,Total 0.3 mg/dL (0.2-1.3); Blood Urea Nitrogen 15 mg/dL (7-17); Calcium 9.3 mg/dL (8.4-10.2); Carbon Dioxide 32 mmol/L (22-30); Chloride 103 mmol/L (98-107); Estimated CRCL calculation 52 ml/min; Estimated Glomerular Filt Rate > 60; Glucose 118 mg/dL (65-110); INR 0.9; Potassium 3.4 mmol/L (3.4-5.0); Prothrombin Time 12.4 Seconds (11.1-14.7); Sodium 137 mmol/L (137-145)
[2022-08-30 00:08] LABS: Partial Thromboplastin Time 27.1 SECONDS (22.3-36.8)
[2022-08-30 00:19] LABS: NT Pro B Type Natriuretic Pept 140 pg/mL (19.9-100); Troponin I < 0.012 ng/mL (0.000-0.034)
[2022-08-30 00:21] LABS: Add Urine Microscopic? YES
[2022-08-30 00:45] VITALS: BP 140/59; PULSE 60; RESP 14; O2SAT 100
[2022-08-30 01:24] VITALS: BP 164/67; PULSE 67; RESP 20; TEMP 36.6; O2SAT 99
== END 2022-08-30 01:25 | disposition home or self-care (01) ==
PROVIDERS: Emergency Provider Emergency Medicine; PCP Family Medicine
DX: I10 Essential (primary) hypertension (principal); R06.02 Shortness of breath; I25.10 Atherosclerotic heart disease of native coronary artery without angina pectoris; E78.5 Hyperlipidemia, unspecified; E03.9 Hypothyroidism, unspecified; K21.9 Gastro-esophageal reflux disease without esophagitis; M19.90 Unspecified osteoarthritis, unspecified site; M85.80 Other specified disorders of bone density and structure, unspecified site; G47.30 Sleep apnea, unspecified; F41.9 Anxiety disorder, unspecified; Z90.710 Acquired absence of both cervix and uterus; Z96.652 Presence of left artificial knee joint; Z90.49 Acquired absence of other specified parts of digestive tract; Z79.82 Long term (current) use of aspirin
CPT/HCPCS: 36415; 71045; 80053; 81001; 83605; 83735; 83880; 84484; 85025; 85610; 85730; 93005; 99284

== ENCOUNTER → 2023-02-18 09:55 | Outpatient (CLI) | payer OTHER, SELFPAY ==
--- NOTE | ~2023-02-18 | MM_ITS ---
EXAMINATION: MM screening [facility] BI w xavi HISTORY: Screening mammogram TECHNIQUE: Craniocaudal and mediolateral oblique 3-D tomosynthesis images were obtained and synthetic 2-D images were generated. CAD analysis was submitted and interpreted. COMPARISON: 02/14/2022, 09/16/2020, 09/01/2019 BREAST PARENCHYMAL COMPOSITION: There are scattered areas of fibroglandular density with extremely de nse tissue in the subareolar aspects of the breasts which limits the sensitivity of mammography in th [place] areas. FINDINGS: No suspicious mass, calcification, or architectural distortion are identified in either tres ast to suggest malignancy. There has been no suspicious interval change. IMPRESSION: 1. No mammographic evidence of malignancy. 2. Recommend routine screening mammography in one year. BI-RADS Category 1: Negative Reviewed, dictated and finalized at location A. [employer]
== END ==
PROVIDERS: PCP Obstetrics & Gynecology; Visit Provider Obstetrics & Gynecology
DX: Z12.31 Encounter for screening mammogram for malignant neoplasm of breast (principal)
CPT/HCPCS: 77063; 77067

== ENCOUNTER 2024-04-09 11:18 | Outpatient (CLI) | payer OTHER, SELFPAY | END 2024-04-09 11:19 | disposition home or self-care (01) | LOC: MICIMG 11:19 | PROVIDERS: PCP Family Medicine; Visit Provider Obstetrics & Gynecology | DX: Z12.31 Encounter for screening mammogram for malignant neoplasm of breast (principal) | CPT/HCPCS: 77063; 77067 ==

== ENCOUNTER 2024-12-09 14:48 | Outpatient (CLI) | payer OTHER, SELFPAY ==
--- OUTSIDE RECORDS SUMMARY | 2009-12-08 03:00 | XMS_ITS | Continuity of Care Document ---
Author Organization [facility] Address [address] [place] [address] Phone Care Team Providers Care Internal Medicine Specialist Name Role Phone Sancho Almonte Unavailable Unavailable Procedures Procedure Date Eye Exam & Treatment Refraction Eye Exam Established Pt Eye Exam & Treatment Refraction Eye Exam & Treatment Refraction Advance Directives Directive Yes / No Effective Date File Name No Information Encounters Encounter Description Practice Location Reason(s) For Visit Diagnoses Date Provider Providers Copied on Encounter [facility], [address] [place] [address] [address], [place], [place], [id number], tel:[phone] SEC [facility] No Information [phone] Gage Kingsley. [address] [facility] , [address], [place], [place], [facility], . tel:[phone] [facility], [address] [place] [address] [address], [place], [place], [id number], [place] tel:[phone] [facility] [place] No Information 9 Doicari Kingsley. [address] [facility] [address] , [address], [place], [place], [facility], . tel:[phone] [facility], [address], [place], [place], [id number], tel:[phone] [facility] No Information 8 Gage Kingsley. [address] , [address], [place], [address], [place]. tel:[phone] [facility], [address], [place], [place], [id number], [place] tel:[phone] [facility] No Information 7 Gage Kingsley. [address] [facility] , [address], [place], [address], [place]. tel:[phone] Family History Family Member Type Diagnosis Age At Onset No Information Payers Payer name Insurance type Covered constitution party ID Authoriza tielizabeth(s) [facility] Commercial 09 [id number] Social History Type Description Quantity Date Captured Comments Sex Female Smoking Status No Information Chief Complaint And Reason For Visit No Information Reason For Referral Reason For Referral No Information History Of Present Illness Encounter Date Complaint History Of Prese nt Illness No Information Functional Status Date Functional Assessmen t No Information Instructions Date Instruction Additional Infor mation No Information Assessments Type Assessment Date No Information Patient Care Teams Name Effective Dates (start - stop) Status Members No Information
--- NOTE | ~2024-12-09 | XR_ITS ---
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 Moderate to severe loss of disc height throughout. Soft tissues unremarkable Impression: No acute abnormality. Reviewed, dictated and finalized at location P. Impression: No acute abnormality.
--- OUTSIDE RECORDS SUMMARY | 2024-12-09 16:53 | XMS_ITS | Clinical Summary ---
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 Active Eliquis 5 mg tablet Take 1 Tablet by mouth 2 times daily. 5 Active aspirin (ECOTRIN EC) 81 mg Tablet, Delayed Release (E.C.) Take 81 mg by mouth daily. Active carvediloL (COREG) 12.5 mg tablet Take 6.25 mg by mouth 2 times daily with meals. Active estradioL (ESTRACE) 0.01% (0.1 mg/g) vaginal cream Insert 1 Gram vaginally daily. Active famotidine (PEPCID) 20 mg tablet Take 20 mg by mouth daily. Active hydroCHLOROthia zide 25 mg tablet Take 25 mg by mouth daily. Active levothyroxine 25 mcg tablet Take 37.5 mcg by mouth daily in the morning. Active lisinopriL (PRINIVIL) 10 mg tablet Take 10 mg by mouth daily. Active multivitamin (DAILY-TRAY) tablet Take 1 Tablet by mouth daily. Active simvastatin (ZOCOR) 20 mg tablet Take 20 mg by mouth daily at bedtime. Active triamcinolone acetonide (KENALOG) 0.1 % Lotion by See Admin Instructions route 2 times daily. Active valACYclovir (VALTREX) 1 gram tablet Take 1 Gram by mouth 2 times daily. Active Active Problems No known active problems Encounters Date Type Department Care Team Description 12/02/2024 External Device Data STL ABSTRACTION Provider, Abstract 12/01/2024 External Device Data ST[facility] ABSTRACTION Provider, Abstract 11/27/2024 Abstract [facility] Heart and Vascular Electrophysiology - [address] [place] [id number] Provider, Abstract 11/19/2024 Abstract [facility] Heart and Vascular - [address] [place] [address] Provider, Abstract 11/17/2024 Telephone [facility] Heart and Vascular Electrophysiology - [address] [place] [phone] Darell Patton MD Echo results 11/17/2024 Telephone [facility] Heart and Vascular Electrophysiology - [address] [place] [address] Darell Patton MD Stress test result 11/16/2024 4:00 PM CDT - 11/16/2024 11:59 PM CDT Hospital Encounter [facility] Heart and Vascular Testing [address] [place] [address] Darell Patton MD Discharge Disposition: Home or Self Care 11/16/2024 2:23 PM CDT - 11/16/2024 11:59 PM CDT Hospital Encounter [facility] Medicine [address] [place] [address] Darell Patton MD Discharge Disposition: Home or Self Care 11/16/2024 1:55 PM CDT - 11/16/2024 11:59 PM CDT Hospital Encounter [facility] Non Invasive Cardiology [address] [place] [address] Darell Patton MD Discharge Disposition: Home or Self Care 11/16/2024 1:14 PM CDT - 11/16/2024 11:59 PM CDT Hospital Encounter [facility] Medicine [address] [place] [address] Darell Patton MD Discharge Disposition: Home or Self Care 11/10/2024 External Device Data STL ABSTRACTION Provider, Abstract 11/10/2024 External Device Data ST[facility] ABSTRACTION Provider, Abstract 11/10/2024 External Device Data STL ABSTRACTION Provider, Abstract 11/09/2024 3:00 PM CDT Office Visit [facility] Heart and Vascular Electrophysiology - [address] [place] [address] Darell Patton MD Paroxysmal atrial fibrillation ([facility]/HCC) (Primary Dx); Anticoagulation management encounter; Essential hypertension; Anginal equivalent 11/09/2024 Prep for Surgery [facility] Heart and Vascular Electrophysiology - [address] [place] [address] Darell Patton MD Paroxysmal atrial fibrillation (CMS/HCC) (Primary Dx) 10/08/2024 Abstract [facility] Heart and Vascular - [address] [place] [address] Provider, Abstract 10/08/2024 Abstract [facility] Heart and Vascular - [address] [place] [address] Provider, Abstract 10/08/2024 Abstract [facility] Heart and Vascular - [address] [place] [address] Provider, Abstract 10/08/2024 Abstract [facility] Heart and Vascular - [address] [place] [address] Provider, Abstract 10/08/2024 Abstract [facility] Heart and Vascular - [address] [place] [address] Provider, Abstract from Last 3 Months Social History Tobacco Use Types Packs/Day Years Used Date Smoking Tobacco: Never Assessed Comments Unknown Sex and Gender Information Value Date Recorded Sex Assigned at Not on file Legal Sex Female 11:13 AM CDT Gender Identity Not on file Sexual Orientation Not on file Last Filed Vital Signs Vital Sign Reading Time Taken Comments Blood Pressure 147/85 11/09/2024 3:05 PM CDT Pulse 76 11/09/2024 3:05 PM CDT Temperature - - Respiratory Rate - - Oxygen Saturation - - Inhaled Oxygen Concentration - - Weight 81.6 kg (180 lb) 11/09/2024 3:04 PM CDT Height 154.9 cm (5' 1) 11/09/2024 3:04 PM CDT Body Mass Index 34.01 11/09/2024 3:04 PM CDT Plan of Treatment Upcoming Encounters Date Type Department Care Team (Latest Contact Info) Description 12/10/2024 12:00 PM CDT Appointment [facility] [place] [address] [place] [address] [place] [address] [address] 12/18/2024 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 Hospital Encounter [facility] Cardiac Corrections Counselor [address] [place] [address] [place] [address] [address] Paroxysmal atrial fibrillation (CMS/HCC) 12/18/2024 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 - 12/18/2024 12:38 PM HOUSE PIPING INSPECTOR Surgery [facility]rections Counselor [address] [place] [address] [place] [address] [address] PVI ablation Health Maintenance Due Date Last Done Comments DTAP/TDAP/TD VACCINES (1 - Tdap) 09/05/1967 PNEUMOCOCCAL VACCINE 50+ YEARS (1 of 1 - PCV) 09/04/18 99 ZOSTER VACCINE (1 of 2) 1998 OSTEOPOROSIS SCREENING 2013 RSV VACCINE (60+ or ) (1 - 1-dose 75+ series) 09/05/2023 Preventative Visit- Commercial 02/12/2024 INFLUENZA VACCINE (#1) 2024 Procedures Procedure Name Priority Date/Time Associated Diagnosis Comments ECHO COMPLETE Routine 11/16/2024 5:11 PM CDT Paroxysmal atrial fibrillation (CMS/HCC) NM MYOCARD PERF IMAG SPECT MULT Routine 11/16/2024 2:40 PM CDT Anginal equivalent NM PHARMACOLOGICAL STRESS TEST Routine 11/16/2024 2:26 PM CDT Anginal equivalent EKG 12-LEAD Routine 11/13/2024 Paroxysmal atrial fibrillation (CMS/HCC) from Last 3 Months Results * ECHO COMPLETE - CONTRAST AND STRAIN IF INDICATED (11/16/2024 5:11 PM CDT) EJECTION FRACTION 60 INTERFACE SYSTEM 11/16/2024 4:08 PM CDT Narrative INTERFACE SYSTEM - 11/17/2024 7:31 AM CDT [facility] Testing Transthoracic Echocardiogram Patient: Shwetha Boyce Study ID: [id number] Gender: F : 1950 Age: 74 Race: CAU Height 154.9cm Study Date: 11/16/2024 Weight: 81.6kg Access. #: [id number] BP: 150 / 85 *Referring Physician:* Darell Patton [place] *Ordering Physician:* Darell Patton *Meat Soaker:* Hasmukh Toribio RDCS, RVT etcher aircraft: Nurse: Indications: Paroxysmal atrial fibrillaion. History: PMH: HLD. CAD. MARLEY. Palpitations. Risk factors: Hypertension. STUDY CONCLUSIONS: SUMMARY: - Left ventricle: The cavity size was normal. Wall thickness was normal. Global systolic function is normal. The estimated ejection fraction is 55-60%. For Epic reporting: the left ventricular ejection fraction is 60% . Left ventricular diastolic function parameters are normal. - Aortic valve: Mild regurgitation. - Mitral valve: Mild regurgitation. - Left atrium: The atrium is normal in size. - Right ventricle: The cavity size is normal. Systolic function is normal. - Pulmonary arteries: The peak systolic pressure is 22mm Hg. Comparison: No previous study was available for comparison. Cardiac Anatomy: LEFT VENTRICLE: The cavity size was normal. Wall thickness was normal. Global systolic function is normal. The estimated ejection fraction is 55-60%. For Epic reporting: the left ventricular ejection fraction is 60% . Wall motion is normal; there are no regional wall motion abnormalities. Global longitudinal strain was -20.5% (GLS is abnormal if greater than -16, i.e. -15). Left ventricular diastolic function parameters are normal. AORTIC VALVE: Not well visualized. Structurally normal valve. Probably trileaflet. Mild regurgitation. The mean systolic gradient is 4mm Hg. The peak systolic gradient is 9mm Hg. The LVOT to aortic valve VTI ratio is 0.6. The ratio of LVOT to aortic valve peak velocity is 0.6. AORTA: Aortic root: The root is normal-sized. MITRAL VALVE: Structurally normal valve. Mild regurgitation. The mean diastolic gradient is 1mm Hg. The peak diastolic gradient is 4mm Hg. LEFT ATRIUM: The atrium is normal in size. RIGHT VENTRICLE: The cavity size is normal. Systolic function is normal. PULMONIC VALVE: Structurally normal valve. No significant regurgitation. TRICUSPID VALVE: Structurally normal valve. Trivial regurgitation. RIGHT ATRIUM: The atrium was normal in size. SYSTEMIC VEINS: Inferior vena cava: The IVC is normal-sized. PERICARDIUM: There is no pericardial effusion. Measurements Left ventricle Value Ref GLS, 2D -20.5 % --------- IVS, ED, LAX (H) 1.0 cm 0.6 - 0.9 IVS, ES, LAX 1.1 cm --------- IVS thickening, LAX 10 % --------- WENDY, LAX (L) 3.6 cm 3.8 - 5.2 WENDY/bsa, LAX (L) 2.0 cm/m^2 2.3 - 3.1 WENDY, LAX chord (N) 4.2 cm 3.8 - 5.2 ESD, LAX chord (H) 3.6 cm 2.2 - 3.5 EWNDY/bsa, LAX chord (N) 2.3 cm/m^2 2.3 - 3.1 ESD/bsa, LAX chord (N) 2.0 cm/m^2 1.3 - 2.1 FS, LAX chord (L) 14 % 27 - 45 IVS, ED (H) 1.0 cm 0.6 - 0.9 IVS, ES 1.1 cm --------- IVS thickening 10 % --------- PW, ED (H) 1.1 cm 0.6 - 0.9 PW, ES 1.2 cm --------- EDV, 2-p (N) 49 ml 46 - 106 ESV, 2-p (N) 18 ml 14 - 42 EF, 2-p (N) 64 % 54 - 74 SV, 2-p 32 ml --------- SV/bsa, 2-p 17.5 ml/m^2 --------- E', med modesta, TDI (L) 6.6 cm/sec >=7.0 E/e', med modseta, TDI 8 --------- LVOT Value Ref Diam, S 2.0 cm --------- Area 3.1 cm^2 --------- Peak taina, S 0.87 m/sec --------- VTI, S 21.4 cm --------- Right ventricle Value Ref WENDY minor ax, A4C base (N) 2.7 cm 2.5 - 4.1 WENDY minor ax, A4C mid (N) 2.5 cm 1.9 - 3.5 WENDY major ax, A4C (L) 4.1 cm 5.9 - 8.3 TAPSE, MM (N) 2.5 cm >=1.7 Pressure, S 22 mm Hg --------- S' lateral (N) 17.7 cm/sec >=9.5 Left atrium Value Ref AP dim, ES (N) 3.5 cm 2.7 - 3.8 AP dim index, ES (N) 1.9 cm/m^2 1.5 - 2.3 SI dim, A4C 4.9 cm --------- Area ES, A4C (N) 17 cm^2 <=20 Area/bsa ES, A4C 9.56 cm^2/m^2 --------- SI dim, A2C 5.5 cm --------- SI dim, shorter 4.9 cm --------- Vol, ES, 1-p A2C (H) 53 ml 22 - 52 Vol/bsa, ES, 1-p A2C (N) 30 ml/m^2 13 - 40 Vol, ES, 2-p 54 ml --------- Vol/bsa, ES, 2-p (N) 30 ml/m^2 16 - 34 LA/Ao root ratio 1.25 --------- Aortic valve Value Ref Peak v, S 1.5 m/sec --------- Mean v, S 0.98 m/sec --------- VTI, S 35.5 cm --------- Accel time 92 ms --------- Mean grad, S 4 mm Hg --------- Peak grad, S 9 mm Hg --------- LVOT/AV, VTI ratio 0.6 --------- FRANSISCO/bsa, VTI 1.04 cm^2/m^2 --------- LVOT/AV, Vpeak ratio 0.6 --------- FRANSISCO/bsa, Vmax 1.03 cm^2/m^2 --------- AR PHT 611 ms --------- Mitral valve Value Ref Peak E 0.56 m/sec --------- Peak A 0.96 m/sec --------- PHT 87 ms --------- Mean grad, D 1 mm Hg --------- Peak grad, D 4 mm Hg --------- Peak E/A ratio 0.6 --------- MVA, PHT 2.5 cm^2 --------- MVA/bsa, PHT 1.4 cm^2/m^2 --------- Max MR v 2.24 m/sec --------- Peak LV-LA grad S 20 mm Hg --------- Pulmonic valve Value Ref Peak v, S 0.79 m/sec --------- Peak grad, S 2 mm Hg --------- Tricuspid valve Value Ref Peak E 0.7 m/sec --------- TR peak v (N) 2.1 m/sec <=2.8 Peak RV-RA grad, S 17 mm Hg --------- Aortic root Value Ref Root diam, 2.8 cm --------- Pulmonary artery Value Ref Pressure, S 22 mm Hg --------- Systemic veins Value Ref Estimated RA pressure 5 mm Hg --------- Legend: (L) and (H) joey values outside specified reference range. (N) hamilton values inside specified reference range. Procedure data: MCHOD No prior study was available for comparison. Procedure information: A transthoracic echocardiogram was performed. Image quality was adequate. Scanning was performed from the parasternal, apical, and subcostal acoustic windows. Transthoracic echocardiogram. Complete 2D, complete spectral Doppler, and color Doppler. Birthdate: Patient birthdate: 1950. Age: Patient is 74year(s) old. Sex: gender: female. Height: 154.9cm. 61in. Weight: 81.6kg. 180lb. Body mass index: 34kg/m^2. Body surface area: 1.81m^2. Blood pressure: 150/85 Study date: Study date: 11/16/2024. Study time: 04:08 PM. Prepared and Electronically Authenticated Guerrero Chong M.D. [id number] Procedure Note Guerrero Chong MD - 11/17/2024 [facility] Transthoracic Echocardiogram Patient: Shwetha Boyce Study ID: [id number] Gender: Waldo : 1950 Age: 74 Race: MAURICIO Height 154.9cm Study Date: 11/16/2024 Weight: 81.6kg Access. #: [id number] BP: 150 / 85 *Referring Physician:Darell Austin Milan *Ordering Physician:Darell Austin *Meat Soaker:Filiberto Toribio RDCS, T etcher aircraft: Nurse: Indications: Paroxysmal atrial fibrillaion. History: PMH: HLD. CAD. MARLEY. Palpitations. Risk factors: Hypertension. STUDY CONCLUSIONS: SUMMARY: - Left ventricle: The cavity size was normal. Wall thickness was normal. Global systolic function is normal. The estimated ejection fraction is 55-60%. For Epic reporting: the left ventricular ejection fraction is60% . Left ventricular diastolic function parameters are normal. - Aortic valve: Mild regurgitation. - Mitral valve: Mild regurgitation. - Left atrium: The atrium is normal in size. - Right ventricle: The cavity size is normal. Systolic function isnormal. - Pulmonary arteries: The peak systolic pressure is 22mm Hg. Comparison: No previous study was available for comparison. Cardiac Anatomy: LEFT VENTRICLE: The cavity size was normal. Wall thickness was normal.Global systolic function is normal. The estimated ejection fraction is 55-60%.For Epic reporting: the left ventricular ejection fraction is 60% . Wallmotion is normal; there are no regional wall motion abnormalities. Globallongitudinal strain was -20.5% (GLS is abnormal if greater than -16, i.e. -15). Left ventricular diastolic function parameters are normal. AORTIC VALVE: Not well visualized. Structurally normal valve. Probably trileaflet. Mild regurgitation. The mean systolic gradient is 4mm Hg.The peak systolic gradient is 9mm Hg. The LVOT to aortic valve VTI ratio is0.6. The ratio of LVOT to aortic valve peak velocity is 0.6. AORTA: Aortic root: The root is normal-sized. MITRAL VALVE: Structurally normal valve. Mild regurgitation. Themean diastolic gradient is 1mm Hg. The peak diastolic gradient is 4mm Hg. LEFT ATRIUM: The atrium is normal in size. RIGHT VENTRICLE: The cavity size is normal. Systolic function isnormal. PULMONIC VALVE: Structurally normal valve. No significantregurgitation. TRICUSPID VALVE: Structurally normal valve. Trivial regurgitation. RIGHT ATRIUM: The atrium was normal in size. SYSTEMIC VEINS: Inferior vena cava: The IVC is normal-sized. PERICARDIUM: There is no pericardial effusion. Measurements Left ventricle Value Ref GLS, 2D -20.5 % --------- IVS, ED, LAX (H) 1.0 cm 0.6 - 0.9 IVS, ES, LAX 1.1 cm --------- IVS thickening, LAX 10 % --------- WENDY, LAX (L) 3.6 cm 3.8 - 5.2 WENDY/bsa, LAX (L) 2.0 cm/m^2 2.3 - 3.1 WENDY, LAX chord (N) 4.2 cm 3.8 - 5.2 ESD, LAX chord (H) 3.6 cm 2.2 - 3.5 WENDY/bsa, LAX chord (N) 2.3 cm/m^2 2.3 - 3.1 ESD/bsa, LAX chord (N) 2.0 cm/m^2 1.3 - 2.1 FS, LAX chord (L) 14 % 27 - 45 IVS, ED (H) 1.0 cm 0.6 - 0.9 IVS, ES 1.1 cm --------- IVS thickening 10 % --------- PW, ED (H) 1.1 cm 0.6 - 0.9 PW, ES 1.2 cm --------- EDV, 2-p (N) 49 ml 46 - 106 ESV, 2-p (N) 18 ml 14 - 42 EF, 2-p (N) 64 % 54 - 74 SV, 2-p 32 ml --------- SV/bsa, 2-p 17.5 ml/m^2 --------- E', med modesta, TDI (L) 6.6 cm/sec >=7.0 E/e', med modesta, TDI 8 --------- LVOT Value Ref Diam, S 2.0 cm --------- Area 3.1 cm^2 --------- Peak taina, S 0.87 m/sec --------- VTI, S 21.4 cm --------- Right ventricle Value Ref WENDY minor ax, A4C base (N) 2.7 cm 2.5 - 4.1 WENDY minor ax, A4C mid (N) 2.5 cm 1.9 - 3.5 WENDY major ax, A4C (L) 4.1 cm 5.9 - 8.3 TAPSE, MM (N) 2.5 cm >=1.7 Pressure, S 22 mm Hg --------- S' lateral (N) 17.7 cm/sec >=9.5 Left atrium Value Ref AP dim, ES (N) 3.5 cm 2.7 - 3.8 AP dim index, ES (N) 1.9 cm/m^2 1.5 - 2.3 SI dim, A4C 4.9 cm --------- Area ES, A4C (N) 17 cm^2 <=20 Area/bsa ES, A4C 9.56 cm^2/m^2 --------- SI dim, A2C 5.5 cm --------- SI dim, shorter 4.9 cm --------- Vol, ES, 1-p A2C (H) 53 ml 22 - 52 Vol/bsa, ES, 1-p A2C (N) 30 ml/m^2 13 - 40 Vol, ES, 2-p 54 ml --------- Vol/bsa, ES, 2-p (N) 30 ml/m^2 16 - 34 LA/Ao root ratio 1.25 --------- Aortic valve Value Ref Peak v, S 1.5 m/sec --------- Mean v, S 0.98 m/sec --------- VTI, S 35.5 cm --------- Accel time 92 ms --------- Mean grad, S 4 mm Hg --------- Peak grad, S 9 mm Hg --------- LVOT/AV, VTI ratio 0.6 --------- FRANSISCO/bsa, VTI 1.04 cm^2/m^2 --------- LVOT/AV, Vpeak ratio 0.6 --------- FRANSISCO/bsa, Vmax 1.03 cm^2/m^2 --------- AR PHT 611 ms --------- Mitral valve Value Ref Peak E 0.56 m/sec --------- Peak A 0.96 m/sec --------- PHT 87 ms --------- Mean grad, D 1 mm Hg --------- Peak grad, D 4 mm Hg --------- Peak E/A ratio 0.6 --------- MVA, PHT 2.5 cm^2 --------- MVA/bsa, PHT 1.4 cm^2/m^2 --------- Max MR v 2.24 m/sec --------- Peak LV-LA grad S 20 mm Hg --------- Pulmonic valve Value Ref Peak v, S 0.79 m/sec --------- Peak grad, S 2 mm Hg --------- Tricuspid valve Value Ref Peak E 0.7 m/sec --------- TR peak v (N) 2.1 m/sec <=2.8 Peak RV-RA grad, S 17 mm Hg --------- Aortic root Value Ref Root diam, 2.8 cm --------- Pulmonary artery Value Ref Pressure, S 22 mm Hg --------- Systemic veins Value Ref Estimated RA pressure 5 mm Hg --------- Legend: (L) and (H) joey values outside specified reference range. (N) hamilton values inside specified reference range. Procedure data: MCHOD No prior study was available for comparison. Procedure information:A transthoracic echocardiogram was performed. Image quality was adequate. Scanning was performed from the parasternal, apical, and subcostalacoustic windows. Transthoracic echocardiogram. Complete 2D, complete spectral Doppler, and color Doppler. Birthdate: Patient birthdate: 1950. Age: Patient is 74year(s) old. Sex: gender:female. Height: 154.9cm. 61in. Weight: 81.6kg. 180lb. Body mass index:34kg/m^2. Body surface area: 1.81m^2. Blood pressure: 150/85 Study date:Study date: 11/16/2024. Study time: 04:08 PM. Prepared and Electronically Authenticated Guerrero Chong M.D. [id number] Darell Patton MD US ORDERABLES Final Result INTERFACE SYSTEM Refer to clinic/hospital department * NM MYOCARD PERF IMAG SPECT MULT (11/16/2024 2:40 PM CDT) 11/16/2024 2:41 PM CDT Impressions INTERFACE SYSTEM - 11/16/2024 4:27 PM CDT IMPRESSION: 1. Myocardial perfusion imaging without evidence of ischemia. 2. Medium sized, moderate severity, fixed septal defect. This finding is most consistent with breast attenuation although a prior nontransmural [place] cannot be definitively excluded. 3. Normal LV size and systolic function 4. No diagnostic ST changes during vasodilator infusion 5. Supervising Daniela is Castillo Cee INTERFACE SYSTEM - 11/16/2024 4:27 PM CDT Lexiscan Myocardial Perfusion Imaging. DATE OF PROCEDURE: 11/16/2024 HISTORY/INDICATION: 74 year-old female. Test performed due to coronary disease. TECHNIQUE: SPECT imaging was obtained after 6.6 mCi of Technetium-99m Sestamibi was given during rest and 19.3 Technetiurn-99m Sestamibi was given during stress. During stress. the patient was given 0.4 mg of Lexiscan. Baseline EKG is sinus rhythm. Vasodilator EKG demonstrates no diagnostic ST changes for ischemia. Baseline heart is 68. Peak heart is 91. Baseline blood pressure 154/76. Peak blood pressure 130/67. Findings: The overall quality of the study is good. Rest and stress SPECT images demonstrate a medium sized area of moderately decreased perfusion of the septal wall that is fixed on rest images. Left ventricular cavity size is normal. The left ventricular ejection fraction is calculated to be 67%. Procedure Note Guerrero Chong MD - 11/16/2024 [facility] Myocardial Perfusion Imaging. DATE OF PROCEDURE: 11/16/2024 HISTORY/INDICATION: 74 year-old female. Test performed due to coronary disease. TECHNIQUE: SPECT imaging was obtained after 6.6 mCi of Technetium-99m Sestamibi was given during rest and 19.3 Technetiurn-99m Sestamibi was given during stress. During stress. the patient was given 0.4 mg of Lexiscan. Baseline EKG is sinus rhythm. Vasodilator EKG demonstrates no diagnostic ST changes for ischemia. Baseline heart is 68. Peak heart is 91. Baseline blood pressure 154/76. Peak blood pressure 130/67. Findings: The overall quality of the study is good. Rest and stress SPECT images demonstrate a medium sized area of moderately decreased perfusion of the septal wall that is fixed on rest images. Left ventricular cavity size is normal. The left ventricular ejection fraction is calculated to be 67%. IMPRESSION: 1. Myocardial perfusion imaging without evidence of ischemia. 2. Medium sized, moderate severity, fixed septal defect. This finding is most consistent with breast attenuation although a prior nontransmural [place] cannot be definitively excluded. 3. Normal LV size and systolic function 4. No diagnostic ST changes during vasodilator infusion 5. Supervising Daniela is Castillo Darell Patton MD NM ORDERABLES Final Result INTERFACE SYSTEM Refer to clinic/hospital department * NM PHARMACOLOGICAL STRESS TEST (11/16/2024 2:26 PM CDT) Narrative 11/16/2024 2:26 PM CDT Order information only. Exam was auto-finalized. us Darell Patton MD NM ORDERABLES Final Result * EKG 12-LEAD (11/13/2024) us Darell Patton MD ECG ORDERABLES Final Result [facility] [address] [place] [address]# [id number] [address] [place] [id number] from Last 3 Months Insurance [employer] CHOICE [id number]
--- OUTSIDE RECORDS SUMMARY | 2024-12-09 16:53 | XMS_ITS | Clinical Summary ---
Author Organization [facility] Address [address] [place] [address] Care Team Providers Care Volunteer Patient Representative Name Role Phone Tita Aldrich APRN-JOSE EDUARDO Primary Care Provider Source Comments [facility]non-owned Affiliates and Associated Physician Practices is amultiple site organization consisting of ambulatory clinics and hospital sitesin [place], [place], [place] and [place]. This disclosure is being madepursuant to the Care Everywhere program and may not contain all information available regarding this patient. Last updated 17.[facility] Allergies Active Allergy Reactions Criticality Noted Date Comments Tramadol Headache 02/03/2017 Medications * Be aware that medications may not be up to date on this document. Alwaysverify current medications with the patient. lisinopril-hydr oCHLOROthiazide (PRINZIDE; ZESTORETIC) 20-25 MG tablet Take 1 tablet by mouth once daily Active levothyroxine (SYNTHROID) 50 MCG tablet Take 50 mcg by mouth daily before breakfast Active simvastatin (ZOCOR) 20 MG tablet Take 20 mg by mouth at bedtime Active ALPRAZolam (XANAX) 0.5 MG tablet Take 0.5 mg by mouth 3 times daily as needed for Anxiety Active aspirin EC (ECOTRIN) 81 MG tablet Take 81 mg by mouth once daily Active estradiol (ESTRACE VAGINAL) 0.1 MG/GM vaginal cream Insert into the vagina at bedtime Active Social History Tobacco Use Types Packs/Day Years Used Date Smoking Tobacco: Never Smokeless Tobacco: Never Alcohol Use Standard Drinks/Week Comments No 0 (1 standard drink = 0.6 oz pur e alcohol) Comments Unknown Sex and Gender Information Value Date Recorded Sex Assigned at Not on file 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 Gender Identity Not on file Sexual Orientation Not on file Last Filed Vital Signs Vital Sign Reading Time Taken Comments Blood Pressure 120/72 02/03/2017 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 Pulse 83 02/03/2017 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 Temperature 37.1 C (98.8 F) 02/03/2017 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 Respiratory Rate 16 02/03/2017 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 Oxygen Saturation 97% 02/03/2017 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 Inhaled Oxygen Concentration - - Weight 81.6 kg (180 lb) 02/03/2017 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 Height 160 cm (5' 3) 02/03/2017 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 Body Mass Index 31.89 02/03/2017 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 Plan of Treatment Health Maintenance Due Date Last Done Comments BONE DENSITY TESTING 1950 HEPATITIS C SCREENING 08/31/1966 DTAP/TDAP/TD VACCINES (1 - Tdap) 09/05/1967 PNEUMOCOCCAL VACCINE 50+ (1 of 1 - PCV) 1998 ZOSTER VACCINE (1 of 2) 1998 SCREENING FOR DIABETES 02/03/2017 Respiratory Syncytial Virus (RSV) Vaccine Pt: or over 60 yrs (1 - 1-dose 75+ series) 09/05/2023 DEPRESSION SCREENING 02/12/2024 COVID-19 VACCINE (1 - 2023-2 5 season) 2024 INFLUENZA VACCINE (#1) 2024 HEPATITIS B VACCINE Aged Out No longe r eligible based on patient's age to complete this topic HIB VACCINE Aged Out No longer eligi ble based on patient's age to complete this topic HPV VACCINE Aged Out No longer eligi ble based on patient's age to complete this topic MENINGOCOCCAL (Group B) VACC INE SHARED DECISION-MAKING Aged Out No longer eligibl e based on patient's age to complete this topic MENINGOCOCCAL GROUPS A/C/Y/W VACCINE Aged Out No longer eligible b ased on patient's age to complete this topic Insurance [facility] Care Teams Volunteer Patient Representative Relationship Specialty Start Date End Date Tita Aldrich, [employer] [address] [place] [id number] PCP - General 02/06/22
== END 2024-12-09 14:49 | disposition home or self-care (01) ==
PROVIDERS: PCP Family Medicine; Visit Provider Family Medicine
DX: M43.17 Spondylolisthesis, lumbosacral region (principal); R29.890 Loss of height
CPT/HCPCS: 72100